=== PATIENT | female | born 1940 | race Hispanic/Latino ===

== ENCOUNTER 2022-03-12 11:33 | Inpatient (IN) | payer OTHER ==
[~2022-03-12] VITALS: Ht 165.1 cm; Wt 64.6 kg
[2022-03-12] MEDS ORDERED: QVAR REDIHALE10.6 GM (11:54)
[2022-03-12] MEDS ORDERED: LEVOCETIRIZINE D5 MG PO (11:54)
[2022-03-12] MEDS ORDERED: METFORMIN HCL500 M1 PO (11:54)
[2022-03-12] MEDS ORDERED: MICARDIS80 MG PO (11:54)
[2022-03-12] MEDS ORDERED: ATORVASTATIN CA20 MG PO (11:54)
[2022-03-12] MEDS ORDERED: FLONASE SENSIM5.9 ML IH (11:54)
[2022-03-12] MEDS ORDERED: ALBUTEROL1.25 MG/3 NEB (11:54)
[2022-03-12] MEDS ORDERED: AMLODIPINE BESYL5 MG PO (11:54)
[2022-03-12] MEDS ORDERED: MONTELUKAST SOD10 MG PO (11:54)
[2022-03-12] MEDS ORDERED: ASPIRIN EC81 MG PO (11:54)
[2022-03-12] MEDS ORDERED: ASPIRIN 325 MG TAB PO ONE (12:15)
[2022-03-12] MEDS ORDERED: LEVALBUTEROL HCL SOLN NEBU 1.25 MG/3 ML NEB INH ONE (12:15)
[2022-03-12] MEDS ORDERED: LEVALBUTEROL HCL SOLN NEBU 1.25 MG/3 ML NEB ONE (12:20)
[2022-03-12] MEDS ORDERED: SODIUM CHLORIDE FLUSH 10 ML SYR INJ PRN (12:30)
[2022-03-12] MEDS ORDERED: ONDANSETRON HCL INJ 2MG/ML 2ML 2 MG/ML VIAL IV PRN (12:30)
[2022-03-12] MEDS ORDERED: Morphine 2mg Syringe 2 MG/ML SYR IV PRN (12:30)
[2022-03-12] MEDS ORDERED: FUROSEMIDE INJ 10 MG/ML 2 ML VIAL IV ONE (13:30)
[2022-03-12] MEDS ORDERED: CEFTRIAXONE 1 GM VIAL IV ONE (13:45)
[2022-03-12] MEDS ORDERED: CEFTRIAXONE 1 GM VIAL ONE (13:55)
[2022-03-12] MEDS ORDERED: FUROSEMIDE INJ 10 MG/ML 4 ML VIAL ONE (13:55)
[2022-03-12 14:59] VITALS: BP 149/80
[2022-03-12 15:51] LABS: CREATINE KINASE MB 1.5 ng/mL (0-5.0)
[2022-03-12] MEDS: ACETAMINOPHEN 325 MG TAB PO PRN ×2 (16:05→20:45)
[2022-03-12 16:40] VITALS: BP 149/80
[2022-03-12 16:47] VITALS: BP 156/92
[2022-03-12 20:00] VITALS: BP 142/78
[2022-03-12 21:00] VITALS: BP 142/78
[2022-03-12] MEDS ORDERED: ALBUTEROL/IPRATROPIUM 3 ML NEB NEB PRN (23:30)
[2022-03-12] MEDS ORDERED: DEXTROSE 50% SYRINGE 50 ML IV PRN (23:30)
[2022-03-12] MEDS: BUDESONIDE 0.5MG/2 ML NEB INH SCH (23:30)
[2022-03-12] MEDS: INSULIN LISPRO 100 UNIT/1 ML 3ML VIAL SQ SCH (23:30)
[2022-03-12] MEDS ORDERED: HYDRALAZINE HCL 20 MG/ML VIAL IV PRN (23:30)
[2022-03-12 23:41] LABS: CREATINE KINASE MB 1.2 ng/mL (0-5.0)
[2022-03-13] VITALS (10 sets, daily range): BP systolic 115–160; BP diastolic 74–88
[2022-03-13] MEDS: MONTELUKAST SODIUM 10 MG TAB PO SCH ×2 (00:43→21:19)
[2022-03-13] MEDS: ATORVASTATIN 40 MG TAB PO SCH ×2 (00:43→21:19)
[2022-03-13] MEDS: BENZONATATE 100 MG CAP PO PRN ×2 (00:43→21:43)
[2022-03-13] MEDS: ALBUTEROL/IPRATROPIUM 3 ML NEB NEB SCH ×4 (01:00→20:00)
[2022-03-13 05:46] LABS: BASOPHILS % 0.6 % (0.0-1.0); EOSINOPHILS # (AUTO) 0.4 (0.0-0.4); EOSINOPHILS % 6.7 % (0.0-6.0); HEMATOCRIT 33.9 % (34.2-44.1); HEMOGLOBIN 11.6 g/dL (12.0-16.0); LYMPHOCYTES # (AUTO) 1.6 (1.0-3.2); MEAN CORPUSCULAR HGB CONC 34.2 g/dL (31-35); MEAN CORPUSCULAR VOLUME 87.6 fL (81-99); MONOCYTES # (AUTO) 0.6 (0.2-0.8); MONOCYTES % 8.7 % (4.4-11.3); NEUTROPHILS # (AUTO) 3.9 (2.1-6.9); NEUTROPHILS % 59.7 % (38.7-80.0); PLATELET COUNT 209 x10e3/uL (140-360); RED BLOOD COUNT 3.87 x10e6/uL (3.6-5.1); RED CELL DISTRIBUTION WIDTH 13.2 % (11.7-14.4)
[2022-03-13] MEDS: AMLODIPINE BESYLATE 5 MG TAB PO SCH (06:21)
[2022-03-13] MEDS: TELMISARTAN 40 MG TAB PO SCH (06:21)
[2022-03-13 06:28] LABS: ANION GAP 13.7 mmol/L (8-16); CALCIUM 8.2 mg/dL (8.4-10.2); CREATININE, SERUM 0.8 mg/dL (0.57-1.11); MAGNESIUM 1.7 MG/DL (1.3-2.1)
[2022-03-13] MEDS: BUDESONIDE 0.5MG/2 ML NEB INH SCH ×2 (06:30→20:00)
[2022-03-13 06:33] LABS: POTASSIUM 2.7 mmol/L (3.5-5.1)
[2022-03-13] MEDS ORDERED: POTASSIUM CHLORIDE 20 MEQ TAB CR PO ONE ×2 (07:00→09:00)
[2022-03-13] MEDS ORDERED: IOPAMIDOL 370 MG/ML 100 ML INFUS..BTL INJ ONE (07:03)
[2022-03-13 07:13] LABS: CREATINE KINASE MB 1.1 ng/mL (0-5.0)
[2022-03-13] MEDS: INSULIN LISPRO 100 UNIT/1 ML 3ML VIAL SQ SCH ×4 (07:30→21:00)
[2022-03-13] MEDS: ACETAMINOPHEN 325 MG TAB PO PRN ×2 (09:00→21:43)
[2022-03-13] MEDS: FUROSEMIDE INJ 10 MG/ML 4 ML VIAL IV SCH (09:18)
[2022-03-13] MEDS: ASPIRIN 325 MG TAB EC PO SCH (09:18)
[2022-03-13] MEDS: POTASSIUM CHLORIDE 10MEQ EA PO SCH (09:18)
[2022-03-13] MEDS ORDERED: TICAGRELOR 90 MG TABLET PO ONE (10:30)
[2022-03-13] MEDS: ENOXAPARIN SOD INJ 40 MG/0.4 ML SYR SC SCH ×2 (11:00→21:19)
[2022-03-13] MEDS: ISOSORBIDE MONONITRATE 30 MG TAB CR PO SCH (11:00)
[2022-03-13 15:03] LABS: ANION GAP 14.3 mmol/L (8-16); CREATININE, SERUM 0.85 mg/dL (0.57-1.11); MAGNESIUM 1.8 MG/DL (1.3-2.1); PHOSPHORUS 2.8 MG/DL (2.3-4.7); POTASSIUM 3.3 mmol/L (3.5-5.1)
[2022-03-13] MEDS: METOPROLOL TARTRATE 25 MG TAB PO SCH (18:03)
[2022-03-13] MEDS: TICAGRELOR 90 MG TABLET PO SCH (21:19)
[2022-03-14] VITALS (20 sets, daily range): BP systolic 116–177; BP diastolic 79–105
[2022-03-14] MEDS: ACETAMINOPHEN 325 MG TAB PO PRN ×2 (02:30→16:46)
[2022-03-14] MEDS: TELMISARTAN 40 MG TAB PO SCH (04:58)
[2022-03-14] MEDS: AMLODIPINE BESYLATE 5 MG TAB PO SCH (04:59)
[2022-03-14 05:25] LABS: ANION GAP 15.3 mmol/L (8-16); CREATININE, SERUM 0.81 mg/dL (0.57-1.11); POTASSIUM 3.3 mmol/L (3.5-5.1)
[2022-03-14] MEDS: ALBUTEROL/IPRATROPIUM 3 ML NEB NEB SCH ×3 (06:50→20:20)
[2022-03-14] MEDS: BUDESONIDE 0.5MG/2 ML NEB INH SCH ×2 (07:02→20:20)
[2022-03-14] MEDS: INSULIN LISPRO 100 UNIT/1 ML 3ML VIAL SQ SCH ×4 (07:30→21:30)
[2022-03-14] MEDS: FUROSEMIDE INJ 10 MG/ML 4 ML VIAL IV SCH (08:09)
[2022-03-14] MEDS ORDERED: ONDANSETRON HCL 4 MG ORAL DISINTEGRATING TAB PO PRN (08:15)
[2022-03-14] MEDS: METOPROLOL TARTRATE 25 MG TAB PO SCH ×2 (09:00→16:45)
[2022-03-14] MEDS: ENOXAPARIN SOD INJ 40 MG/0.4 ML SYR SC SCH ×2 (09:00→21:30)
[2022-03-14] MEDS ORDERED: NITROGLYCERIN/D5W 200 MCG/ML 250 ML ONE (10:11)
[2022-03-14] MEDS ORDERED: SODIUM CHLORIDE 0.9% 1000ML 1,000 ML ONE (10:11)
[2022-03-14] MEDS ORDERED: HEPARIN SOD/SOD CHLORIDE 2,000 ML ONE (10:11)
[2022-03-14] MEDS ORDERED: IOPAMIDOL 370 MG/ML 100 ML INFUS..BTL INJ ONE ×2 (10:11→10:12)
[2022-03-14] MEDS ORDERED: LIDOCAINE HCL 2% LOCAL 20 ML VIAL ONE (10:11)
[2022-03-14] MEDS ORDERED: HEPARIN SOD (PORCINE) 1000 UNIT/ML 30ML ONE (10:11)
[2022-03-14] MEDS ORDERED: VERAPAMIL HCL 2.5 MG/ML 2 ML VIAL ONE (10:12)
[2022-03-14] MEDS ORDERED: FENTANYL CITRATE/PF 100MCG/2 ML INJ ONE (10:13)
[2022-03-14] MEDS ORDERED: MIDAZOLAM HCL 2 MG/2 ML VIAL ONE (10:13)
[2022-03-14] MEDS: TICAGRELOR 90 MG TABLET PO SCH ×2 (14:48→21:30)
[2022-03-14] MEDS: ASPIRIN 325 MG TAB EC PO SCH (14:48)
[2022-03-14] MEDS: POTASSIUM CHLORIDE 10MEQ EA PO SCH (14:49)
[2022-03-14] MEDS: ISOSORBIDE MONONITRATE 30 MG TAB CR PO SCH (14:49)
[2022-03-14] MEDS: MONTELUKAST SODIUM 10 MG TAB PO SCH (21:30)
[2022-03-14] MEDS: ATORVASTATIN 40 MG TAB PO SCH (21:30)
[2022-03-15] VITALS: BP 123/80
[2022-03-15 02:46] VITALS: BP 123/80
[2022-03-15 04:52] VITALS: BP 148/86
[2022-03-15] MEDS: AMLODIPINE BESYLATE 5 MG TAB PO SCH (06:03)
[2022-03-15] MEDS: TELMISARTAN 40 MG TAB PO SCH (06:03)
[2022-03-15] MEDS: ALBUTEROL/IPRATROPIUM 3 ML NEB NEB SCH (07:28)
[2022-03-15] MEDS: BUDESONIDE 0.5MG/2 ML NEB INH SCH (07:28)
[2022-03-15] MEDS: INSULIN LISPRO 100 UNIT/1 ML 3ML VIAL SQ SCH (07:30)
[2022-03-15 07:42] VITALS: BP 136/89
[2022-03-15] MEDS: ISOSORBIDE MONONITRATE 30 MG TAB CR PO SCH (08:46)
[2022-03-15] MEDS: TICAGRELOR 90 MG TABLET PO SCH (08:46)
[2022-03-15] MEDS: ASPIRIN 325 MG TAB EC PO SCH (08:46)
[2022-03-15] MEDS: METOPROLOL TARTRATE 25 MG TAB PO SCH (08:46)
[2022-03-15] MEDS: FUROSEMIDE INJ 10 MG/ML 4 ML VIAL IV SCH (08:46)
[2022-03-15] MEDS: ENOXAPARIN SOD INJ 40 MG/0.4 ML SYR SC SCH (08:46)
[2022-03-15] MEDS: POTASSIUM CHLORIDE 10MEQ EA PO SCH (08:46)
[2022-03-15 08:47] VITALS: BP 136/89
[2022-03-15] MEDS ORDERED: LASIX40 MG PO (09:49)
[2022-03-15] MEDS ORDERED: Imdur PO (09:50)
[2022-03-15] MEDS ORDERED: K DUR10 MEQ PO (09:50)
[2022-03-15] MEDS ORDERED: LOPRESSOR25 MG PO (09:51)
== END 2022-03-15 10:28 | disposition home or self-care (01) | DRG 286 ==
LOC: FSED 12:03 → ERHOLD 13:27 → MED/SURG 14:37 → OBSVTOIN 03-13 11:10
PROVIDERS: ADMIT Internal Medicine; ATTEND Internal Medicine
PROC: 4A023N7 Measurement of Cardiac Sampling and Pressure, Left Heart, Percutaneous Approach (ICD-10-PCS; principal; 2022-03-14)
PROC: B2111ZZ Fluoroscopy of Multiple Coronary Arteries using Low Osmolar Contrast (ICD-10-PCS; 2022-03-14)
PROC: B2151ZZ Fluoroscopy of Left Heart using Low Osmolar Contrast (ICD-10-PCS; 2022-03-14)
PROC: 4A033BC Measurement of Arterial Pressure, Coronary, Percutaneous Approach (ICD-10-PCS; 2022-03-14)
DX: I25.110 Atherosclerotic heart disease of native coronary artery with unstable angina pectoris (principal); I50.33 Acute on chronic diastolic (congestive) heart failure; N39.0 Urinary tract infection, site not specified; E11.9 Type 2 diabetes mellitus without complications; J45.909 Unspecified asthma, uncomplicated; K21.9 Gastro-esophageal reflux disease without esophagitis; E78.5 Hyperlipidemia, unspecified; I11.0 Hypertensive heart disease with heart failure; B96.1 Klebsiella pneumoniae [K. pneumoniae] as the cause of diseases classified elsewhere; I27.22 Pulmonary hypertension due to left heart disease; E87.6 Hypokalemia; I16.0 Hypertensive urgency; Z88.5 Allergy status to narcotic agent; Z88.0 Allergy status to penicillin; Z88.8 Allergy status to other drugs, medicaments and biological substances; Z90.49 Acquired absence of other specified parts of digestive tract; Z87.891 Personal history of nicotine dependence; Z98.61 Coronary angioplasty status; Z83.3 Family history of diabetes mellitus; Z82.49 Family history of ischemic heart disease and other diseases of the circulatory system; Z79.84 Long term (current) use of oral hypoglycemic drugs
CPT/HCPCS: 36415; 71046; 71260; 76937; 80048; 80053; 80061; 81003; 82550; 82553; 82948; 83036; 83735; 83880; 84100; 84443; 84484; 85025; 85379; 87086; 87186; 93005; 93306; 93458; 93571; 94640; 94799; 96374; 99152; 99153; 99284; C1760; C1766; C1769; C1887; G0378; J0696; J1644; J1650; J1940; J2001; J2250; J3010; J7030; Q9967; U0002